=== PATIENT | male | born 1945 | race Caucasian/White ===

== ENCOUNTER 2019-11-01 08:48 | Outpatient (CLI) | payer MEDICARE, SELFPAY ==
--- NOTE | 2019-10-25 10:14 | PC.NURSE ---
PT'S PHONE NUMBER DOES NOT HAVE SET UP. CALLED DR JHAVERI'S OFFICE. NO ALTERNATE NUMBER.
--- NOTE | ~2019-11-01 | CT_ITS ---
EXAMINATION: CT chest abdomen pelvis w con DATE: 11/01/2019 11:37 INDICATION: Chronic obstructive pulmonary disease. Congestive heart failure. Bone tumor. TECHNIQUE: Computed tomography (CT) of the chest, abdomen, and pelvis was performed with 100 mL Omnip aque 350 intravenous contrast. Automated exposure control and iterative reconstruction technique were employed. The dose-length product was 1917.00 mGy-cm. COMPARISON: Chest CT 11/01/2016, CT abdomen and pelvis 12/20/2010 FINDINGS: CHEST CT: There is mild scarring at the lung apices. Calcified pulmonary nodules and calcified hilar and medias tinal lymph nodes are consistent with old granulomatous disease. There are tree-in-bud opacities in l eft lower lobe consistent with mild pneumonia. No pleural effusion. There is ectasia of ascending aor ta measuring 4.6 cm. The heart size is normal. There are coronary artery calcifications. There are ch anges of coronary artery bypass grafting. There is a left chest wall pacer with leads in the right at rium and right ventricle. There is an old healed left rib fracture. ABDOMEN/PELVIS CT: There is diffuse hepatic steatosis. There are changes of cholecystectomy. Calcifications in the splee n are consistent with old granulomatous disease. The pancreas and adrenal glands are normal. There is cortical thinning of the kidneys. The prostate is mildly enlarged. There are no dilated loops of bow el. There are no pathologically enlarged lymph nodes. There is no free intraperitoneal fluid. There i s a lipoma in the right gluteus vandana muscle. There is a left inguinal hernia containing fat. There is a 9 mm sclerotic lesion in L3 vertebral body with increase from 6 mm on 12/20/2010, consistent with a benign bone island. There is moderate lumbar spondylosis. IMPRESSION: 1. Mild pneumonia in left lower lobe. 2. 9 mm sclerotic lesion in L3 vertebral body with increase in size from 6 mm on 12/20/2010, consistent with a benign bone island. Reviewed, dictated and finalized at location A. UIT JUDGE IMPRESSION: 1. Mild pneumonia in left lower lobe. 2. 9 mm sclerotic lesion in L3 vertebral body with increase in size from 6 mm o n 12/20/2010, consistent with a benign bone island.
--- NOTE | ~2019-11-01 | CT_ITS ---
EXAMINATION: 1. XR myelogram spine lumbosacral 2. CT lumbar spine w con DATE: 11/01/2019 11:51 INDICATION: Lumbar spondylosis. TECHNIQUE: The procedure including the risks, benefits, and alternatives was discussed with the patie nt. Risks discussed included spinal headache, cerebrospinal fluid leak, bleeding, and infection. The patient understood the risks and agreed to proceed. A timeout was performed to verify the patient' s name, date of , and procedure to be performed. The skin overlying the L2-L3 level was prepped and draped in usual sterile fashion. Subcutaneous 1% lidocaine was used for local anesthesia. A 22 gauge spinal needle was advanced under fluoroscopic guidance. 17 mL of Omnipaque 180 was injected. T he needle was removed and the entry site was cleaned and dressed. There were no immediate complicati ons. Fluoroscopy exposure time was 0.6 minutes. The total number of images was 14.Computed tomography (CT) of the lumbar spine was performed with 100 mL Omnipaque 350 intravenous contrast. The mA was ad justed according to patient size. Iterative reconstruction technique was employed. The dose-length pr oduct was 1917.00 mGy-cm (which includes the chest, abdomen, and pelvis CT performed at the same time ). COMPARISON: CT abdomen and pelvis 12/20/10 FINDINGS: LUMBAR MYELOGRAM: Real-time fluoroscopy demonstrates the needle at the L2-L3 level. There is indentat ion of the thecal sac at multiple levels that will be be further discussed on the lumbar spine CT. POST-MYELOGRAM LUMBAR SPINE CT: Bone alignment is normal. There is mildly decreased disc height at L3 -L4 and L4-L5. There is a 9 mm sclerotic lesion in L3 vertebral body with increase in size from 6 mm on 12/20/2010, consistent with a benign bone island. Epidural lipomatosis is noted. The following disc levels are specifically discussed: L1-L2: The disc does not extend beyond the endplate margin. There is mild bilateral facet joint osteo arthritis. There is no neural foraminal stenosis. There is no central canal stenosis. L2-L3: The disc is bulging. There is moderate bilateral facet joint osteoarthritis. There is mild letha ateral neural foraminal stenosis. There is no central canal stenosis. L3-L4: The disc is bulging. There is mild bilateral facet joint osteoarthritis. There is moderate letha ateral neural foraminal stenosis. There is mild central canal stenosis. L4-L5: The disc is bulging. There is moderate bilateral facet joint osteoarthritis. There is moderate bilateral neural foraminal stenosis. There is moderate central canal stenosis. L5-S1: The disc is bulging. There is severe bilateral facet joint osteoarthritis. There is mild bilat eral neural foraminal stenosis. There is moderate central canal stenosis. IMPRESSION: 1. Moderate lumbar spondylosis. Reviewed, dictated and finalized at location A. ISITION COST ESTIMATOR IMPRESSION: 1. Moderate lumbar spondylosis.
--- NOTE | ~2019-11-01 | XR_ITS ---
EXAMINATION: XR lumbar spine min 4V DATE: 11/01/2019 10:35 INDICATION: Lumbar spondylosis TECHNIQUE: 4 views of the lumbar spine including anteroposterior and lateral in neutral, flexion and extension were obtained. COMPARISON: CT lumbar spine dated 09/20/2019 FINDINGS: Alignment is normal. Mild hypomobility of the lumbar spine with flexion and extension with no abnorma l transitory motion. Vertebral body heights are normal. Mild disc height loss at T11-T12 and L4-L5. M inimal disc height loss with mild degenerative endplate changes at L2-L3 and L4-L5. Mild to moderate lumbar facet osteoarthritis most prominent at L5-S1. Atherosclerotic aorta. IMPRESSION: 1. Mild lumbar spondylosis with mildly decreased motion with flexion and extension but no abnormal tr ansitory motion. Reviewed, dictated and finalized at location A. HER WRINGER OPERATOR IMPRESSION: 1. Mild lumbar spondylosis with mildly decreased motion with flexion and extens ion but no abnormal transitory motion.
[2019-11-01 10:03] LABS: Mean Platelet Volume 12.3 fl (7.4-10.4); Platelet Count Result 84 k/mm3 (150-375)
[2019-11-01 10:08] LABS: INR 0.9; Prothrombin Time 11.9 Seconds (11.1-14.7)
[2019-11-01 11:26] LABS: Blood Urea Nitrogen 18 mg/dL (8-26); Estimated Glomerular Filt Rate > 60
[2019-11-01 11:35] VITALS: BP 138/71; PULSE 71
[2019-11-01 12:00] VITALS: BP 144/74; PULSE 72
[2019-11-01 12:30] VITALS: BP 150/81; PULSE 72
[2019-11-01 13:00] VITALS: BP 157/88; PULSE 67
[2019-11-01 13:15] VITALS: BP 162/86; PULSE 66
== END 2019-11-01 13:32 | disposition home or self-care (01) ==
PROVIDERS: Radiology Diagnostic Radiology; PCP Internal Medicine; Visit Provider Neurological Surgery
DX: D49.2 Neoplasm of unspecified behavior of bone, soft tissue, and skin (principal); J44.9 Chronic obstructive pulmonary disease, unspecified; I50.22 Chronic systolic (congestive) heart failure; M47.816 Spondylosis without myelopathy or radiculopathy, lumbar region; J18.9 Pneumonia, unspecified organism
CPT/HCPCS: 36415; 62304; 71260; 72110; 72132; 74177; 85049; 85610; Q9965; Q9967

== ENCOUNTER 2021-01-08 09:24 | Outpatient (CLI) | payer MEDICARE, SELFPAY ==
--- NOTE | ~2021-01-08 | CT_ITS ---
EXAMINATION: CT lung screening DATE: 01/08/2021 09:40 INDICATION: HX OF TOBACCO USE TECHNIQUE: Computed tomography (CT) of the chest was performed without intravenous contrast. Addition al 3D reconstructions utilizing coronal maximum intensity projection (MIP) were performed. Automated exposure control and iterative reconstruction technique were employed. The dose-length product was 35 5.29 mGy-cm. COMPARISON: 11/01/2019 and 09/08/2013 FINDINGS: There are couple small groundglass nodules in the right upper lobe, the smaller more cephalad along t he cephalad aspect of the major fissure measures approximately 10 mm in maximal diameter, the larger and more caudal measures 1.5 cm in maximal diameter. There are few scattered bilateral calcified pulm onary nodules along with calcified mediastinal and bilateral hilar lymph nodes consistent with old gr anulomatous disease. Unchanged mild discoid atelectasis/scarring at the caudal lingula. New thin line ar band of discoid atelectasis in the right lower lobe. No new or enlarging pulmonary nodules, pneumo patricia, pulmonary edema or pleural effusion. Heart size is normal. Atherosclerotic coronary artery calci fications with change of prior median sternotomy and coronary artery bypass grafting. Left pectoral d ual-lead cardiac pacemaker/defibrillator with lead tips at the right atrial appendage and near the ap ex of the right ventricle. No pericardial effusion. Diffuse from ascending thoracic aortic aneurysm m easuring up to 4.7 cm in maximal diameter. No pathologically enlarged thoracic lymphadenopathy. Multi ple splenic ossifications consistent with old granulomatous disease. Mild thoracic spondylosis. Coupl e likely old healed left rib fractures. 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 IMPRESSION: 1. . Lung-RADS category 2: Benign appearance or behavior. Continue annual screening with noncontrast low-dose chest CT in 12 months. 2. 4.7 cm fusiform ascending thoracic aortic aneurysm. Reviewed, dictated and finalized at location A. IMPRESSION: 1. . Lung-RADS category 2: Benign appearance or behavior. Continue annual scree francis with noncontrast low-dose chest CT in 12 months. 2. 4.7 cm fusiform ascending thoracic aortic aneurysm.
== END 2021-01-08 09:25 | disposition home or self-care (01) ==
PROVIDERS: PCP Internal Medicine
DX: Z12.2 Encounter for screening for malignant neoplasm of respiratory organs (principal); Z87.891 Personal history of nicotine dependence; I71.2 Thoracic aortic aneurysm, without rupture
CPT/HCPCS: 71271

== ENCOUNTER 2021-12-06 10:08 | Outpatient (CLI) | payer MEDICARE, SELFPAY ==
--- NOTE | ~2021-12-06 | CT_ITS ---
EXAMINATION: CT lung screening DATE: 12/06/2021 10:28 INDICATION: Screening for lung cancer. Personal history of tobacco dependence. TECHNIQUE: Computed tomography (CT) of the chest was performed without intravenous contrast. The dose -length product was 348.28 mGy-cm. Automated exposure control and iterative reconstruction technique were employed. COMPARISON: CT dated 01/08/2021 FINDINGS: No significant change to fusiform ascending thoracic aortic aneurysm measuring 4.8 cm. Ther e is atherosclerosis of the aorta and coronary arteries. Status post median sternotomy for CABG. Stat us post cholecystectomy. There are calcified granulomas of the spleen. No significant pleural or rodney cardial effusion. No lymphadenopathy. No significant change to groundglass nodule right upper lobe, i mage 42 and larger on image 55 measuring 11 mm maximum dimension. There is right lower lobe atelectas is. There are a few scattered 2-3 mm nodules predominantly in the upper lobes. No endobronchial lesio ns. No pneumothorax. No acute focal pneumonia, edema. There are old healed left rib fractures. IMPRESSION: 1. Lung-RADS category 2: Benign appearance or behavior. Continue annual screening with noncontrast lo w-dose chest CT in 12 months. Reviewed, dictated and finalized at location B. IMPRESSION: 1. Lung-RADS category 2: Benign appearance or behavior. Continue annual screeni ng with noncontrast low-dose chest CT in 12 months.
== END 2021-12-06 10:09 | disposition home or self-care (01) ==
LOC: ANHIMG 10:10
PROVIDERS: PCP Internal Medicine
DX: Z12.2 Encounter for screening for malignant neoplasm of respiratory organs (principal); Z87.891 Personal history of nicotine dependence
CPT/HCPCS: 71271

== ENCOUNTER 2022-05-30 14:08 | Outpatient (CLI) | payer MEDICARE, SELFPAY ==
--- NOTE | ~2022-05-30 | CT_ITS ---
EXAMINATION:CT lung screening DATE: 05/30/2022 15:38 INDICATION: Personal history of nicotine dependence. Smoker who quit 0.5 years ago with 50 pack year history. TECHNIQUE: Computed tomography (CT) of the chest was performed without intravenous contrast. Automate d exposure control and iterative reconstruction technique were employed. The dose-length product (DLP ) was 426.43 mGy-cm. COMPARISON: Chest CT 12/06/2021 FINDINGS: There is mild emphysema. Calcified bilateral lung nodules and calcified right hilar and med iastinal lymph nodes are consistent with old granulomatous disease. There is mild atelectasis bilater ally. There is mucous plugging in right lower lobe. There is a stable 10 mm groundglass opacity in ri ght upper lobe. There is a stable 9 mm groundglass opacity in right upper lobe. There is mild scarrin g at the lung apices. No pleural effusion. The heart size is normal. There are coronary artery calcif ications. There are changes of coronary artery bypass grafting. No pericardial effusion. Calcificatio ns in the spleen are consistent with old granulomatous disease. There are changes of cholecystectomy. There is diffuse hepatic steatosis. There is a left chest wall pacer with leads in the right atrium and right ventricle. There are old healed left rib fractures. There is mild thoracic spondylosis. IMPRESSION: 1. Lung-RADS category 2: Benign appearance or behavior. Continue annual screening with noncontrast lo w-dose chest CT in 12 months. Reviewed, dictated and finalized at location A. IMPRESSION: 1. Lung-RADS category 2: Benign appearance or behavior. Continue annual screeni ng with noncontrast low-dose chest CT in 12 months.
--- NOTE | ~2022-05-30 | CT_ITS ---
EXAMINATION: CT brain wo con DATE: 05/30/2022 15:37 INDICATION: Dizziness. Headache. TECHNIQUE: Computed tomography (CT) of the head was performed without intravenous contrast. The mA wa s adjusted according to patient size. Iterative reconstruction technique was employed. The dose-lengt h product was 681.00 mGy-cm. COMPARISON: Head CT 12/28/2010 FINDINGS: There is no intracranial hemorrhage, acute infarction, or abnormal intracranial mass lesion . The ventricles are normal in size. There are likely changes of ocular lens replacement surgeries. T here are old healed fracture deformities of the nasal bones. There is a chronic 3 mm radiopaque forei gn body in left infraorbital region. There are small bilateral mastoid effusions. IMPRESSION: 1. Normal brain. Reviewed, dictated and finalized at location A. IMPRESSION: 1. Normal brain.
--- NOTE | ~2022-05-30 | XR_ITS ---
EXAMINATION:XR_CERV2-3V_CR DATE: 05/30/2022 14:39 INDICATION: Chronic neck pain. TECHNIQUE: AP, lateral, lateral swimmers and odontoid views of the cervical spine are provided. COMPARISON: 07/30/2016 FINDINGS: 1-2 mm retrolisthesis C5 on C6 with associated moderate disc height loss at C5-C6. Odontoid is intact . Normal atlantoaxial interval. Vertebral body heights are normal. Remaining disc heights are normal . Moderate facet osteoarthritis from C2-C3 through C4-C5 with mild facet osteoarthritis and more caud al cervical spine. Atherosclerotic calcific a cyst at the bilateral carotid bulbs. Prevertebral soft tissues are otherwise normal. Visualized apices of the lungs are clear. Median sternotomy wires and mediastinal surgical clips are seen, likely from prior coronary artery bypass grafting. There are als o cardiac pacemaker leads extending into the superior vena cava and below the caudal margin of the fi eld-of-view. IMPRESSION: 1. No significant change in 1 cm retrolisthesis C5 on C6 with moderate associated degenerative disc d isease. Reviewed, dictated and finalized at location A. IMPRESSION: 1. No significant change in 1 cm retrolisthesis C5 on C6 with moderate associat ed degenerative disc disease.
== END 2022-05-30 14:09 | disposition home or self-care (01) ==
PROVIDERS: PCP Internal Medicine; Visit Provider Nurse Practitioner
DX: Z12.2 Encounter for screening for malignant neoplasm of respiratory organs (principal); Z87.891 Personal history of nicotine dependence; R25.8 Other abnormal involuntary movements
CPT/HCPCS: 70450; 71271; 72040

== ENCOUNTER 2022-11-24 13:32 | Emergency (ER) | payer MEDICARE, SELFPAY ==
[2022-11-24] VITALS (10 sets, daily range): BP systolic 104–127; BP diastolic 59–76; PULSE 73–91; RESP 12–30; TEMP 37.3; O2SAT 92–95
[2022-11-24 14:07] LABS: Basophils Absolute Auto 0.1 K/mm3 (0.0-0.1); Basophils Percent Auto 0.9 % (0.2-1.2); Eosinophils Absolute Auto 0.3 K/mm3 (0-0.3); Eosinophils Percent Auto 3.6 % (0-4.4); Hematocrit 46.8 % (42.0-52.0); Hemoglobin 15.9 g/dL (14.0-18.0); Immature Granulocyte Absolute 0.02 K/mm3 (0.00-0.031); Immature Granulocyte Percent A 0.3 % (0-0.5); Immature Platelet Fraction Pct 20.8 % (0.9-11.2); Lymphocytes Absolute Auto 1.73 K/mm3 (0.9-3.2); Lymphocytes Percent Auto 22.9 % (18.3-44.2); Mean Corpuscular Hemoglobin 31.2 pg (26-34); Mean Corpuscular Volume 91.8 fl (80-100); Mean Platelet Volume 13.2 fl (7.4-10.4); Monocytes Absolute Auto 0.8 K/mm3 (0.1-0.6); Monocytes Percent Auto 10.4 % (2.6-8.5); Neutrophils Absolute Auto 4.7 K/mm3 (1.3-6.7); Neutrophils Percent Auto 61.9 % (45.5-73.1); Platelet Count Result 105 k/mm3 (150-375); Red Cell Distribution Width 13.1 % (11.5-14.5); White Blood Count 7.6 K/mm3 (4.5-10.0)
[2022-11-24 14:20] LABS: Prothrombin Time 12.5 Seconds (11.1-14.7)
[2022-11-24 14:21] LABS: Partial Thromboplastin Time 24.8 SECONDS (22.3-36.8)
[2022-11-24 14:41] LABS: Alanine Aminotransferase 28 U/L (6-50); Albumin Level 4.6 g/dL (3.5-5.1); Alkaline Phosphatase 31 U/L (38-126); Anion Gap 6 mmol/L (8-16); Aspartate Amino Transferase 34 U/L (17-59); Bilirubin,Total 0.5 mg/dL (0.2-1.3); Blood Urea Nitrogen 20 mg/dL (9-20); Calcium 9.3 mg/dL (8.4-10.2); Carbon Dioxide 29 mmol/L (22-30); Chloride 103 mmol/L (98-107); Estimated CRCL calculation 66 ml/min; Estimated Glomerular Filt Rate > 60; Glucose 94 mg/dL (65-110); Potassium 4.2 mmol/L (3.4-5.0); Sodium 138 mmol/L (137-145)
--- NOTE | 2022-11-24 15:21 | ED.GENADULT ---
HPI - General Adult General Chief complaint: GI Bleed Stated complaint: GI bleed Time Seen by Provider: 11/24/22 13:48 History of Present Illness HPI narrative: Patient is a 77-year-old male who presents ER with constipation and rectal bleeding. Reports he has a piece of stool he cannot evacuate. He tried using his hand for manual disimpaction. There was blood dripping in the toilet when he decided to call an ambulance. He is on no blood thinners. No fevers or chills or sweats. No abdominal discomfort. Has not had issues like this previously. Last bowel movement was 4 days ago. Related Data Home Medications Medication Instructions Recorded Confirmed magnesium oxide 400 mg PO DAILY 08/30/19 10/28/22 theophylline 400 mg 400 mg PO Q24H 09/08/19 10/28/22 capsule,extended release 24 hr losartan 25 mg tablet (Cozaar) 25 mg PO DAILY 07/24/20 10/28/22 potassium chloride 10 mEq 10 meq PO BID 07/24/20 10/28/22 tablet,extended release fenofibrate 150 mg capsule 145 mg PO DAILY 01/10/21 10/28/22 guaifenesin 600 mg tablet, 600 mg PO BID 01/10/21 10/28/22 extended release 12 hr (Mucinex) furosemide 40 mg tablet (Lasix) 20 mg PO QAM 03/21/21 10/28/22 carvedilol 25 mg tablet 25 mg PO BID 07/30/21 10/28/22 Allergies Allergy/AdvReac Type Severity Reaction Status Date / Time levofloxacin Allergy Mild Rash Verified 11/24/22 13:40 ciprofloxacin Allergy Unknown Unknown Verified 11/24/22 13:40 Sulfa (Sulfonamide Allergy Unknown RASH Verified 11/24/22 13:40 Antibiotics) sulfanilamide Allergy Unknown Unknown Verified 11/24/22 13:40 Review of Systems Review of Systems: All systems reviewed & are unremarkable except as noted in HPI and below Constitutional: Constitutional: Denies chills, Denies fatigue and Denies fever(s) ENT: Denies nasal congestion and Denies sore throat Cardiovascular: Cardiovascular: Denies chest pain, Denies rapid heart rate and Denies radiating jaw, neck or arm pain Respiratory: Respiratory: Denies cough and Denies dyspnea Gastrointestinal: Gastrointestinal: Reports constipation, Denies diarrhea, Denies nausea and Denies vomiting Comments: rectal bleeding PMFSH Past Medical History Medical History (Updated 11/24/22 @ 16:01 by Sammy Allen MD) Arthritis Asthma Bilateral leg weakness CAD (coronary artery disease) Cataracts, bilateral CKD stage G3a/A1, GFR 45-59 and albumin creatinine ratio <30 mg/g Colon polyps COPD (chronic obstructive pulmonary disease) with emphysema CPAP (continuous positive airway pressure) dependence Finger fracture Frequent PVCs GERD (gastroesophageal reflux disease) Headache Heart attack HTN (hypertension) Hyperlipidemia Hypothyroidism Leg fracture, right Lumbar degenerative disc disease Nose fracture Pacemaker Screening for prostate cancer Seasonal allergies Shingles Sleep apnea Vertigo Surgical History Surgical History History of angioplasty History of cardiac catheterization History of cataract surgery History of colonoscopy with polypectomy History of coronary artery stent placement x5 History of inguinal hernia repair History of tonsillectomy Hx of CABG Quadruple Hx of local excision of skin lesion Family History Family History Sibling Hypertension Father Acute myocardial infarction Sibling Brain neoplasm malignant Mother Cancer Heart disease Mother Diabetes mellitus Family history of malignant neoplasm Family history of coronary artery disease Father Acute myocardial infarction Family history of Alzheimer's disease Family history of dementia Family history of coronary artery disease Sibling Acute myocardial infarction Family history of cardiovascular disease Family history of emphysema Family history of coronary artery disease Other Family history of blood dyscrasia Family history of cardiac disord
== END 2022-11-24 16:16 | disposition home or self-care (01) ==
PROVIDERS: Emergency Provider Emergency Medicine; PCP Internal Medicine
DX: K64.4 Residual hemorrhoidal skin tags (principal); K59.00 Constipation, unspecified; I12.9 Hypertensive chronic kidney disease with stage 1 through stage 4 chronic kidney disease, or unspecified chronic kidney disease; N18.31 Chronic kidney disease, stage 3a; J44.9 Chronic obstructive pulmonary disease, unspecified; E78.5 Hyperlipidemia, unspecified; E03.9 Hypothyroidism, unspecified; I25.10 Atherosclerotic heart disease of native coronary artery without angina pectoris; K21.9 Gastro-esophageal reflux disease without esophagitis; I25.2 Old myocardial infarction; G47.30 Sleep apnea, unspecified; Z95.0 Presence of cardiac pacemaker; Z95.1 Presence of aortocoronary bypass graft; Z95.5 Presence of coronary angioplasty implant and graft
CPT/HCPCS: 36415; 80053; 85025; 85055; 85610; 85730; 86850; 86900; 86901; 99283